=== PATIENT | male | born 1950 | race Caucasian/White ===

== ENCOUNTER 2020-02-01 09:55 | Inpatient (IN) | payer MEDICARE ==
[~2020-02-01] VITALS: Ht 182.9 cm; Wt 118.2 kg
[~2020-02-01 09:55] MED LIST: ATOR20TA PO; BACL10TA PO; CLOP75TA35 PO; HYDR-4353 PO; TRAZ150T78 PO; VALS1TAB50 PO; WEL625T PO; ZOLP10TA5 PO
[2020-02-01 10:24] LABS: EOSINOPHILS # (AUTO) 0.3 X10'3 (0-0.9); WHITE BLOOD COUNT 8.1 X10'3 (4.5-11.0)
[2020-02-01] MEDS ORDERED: aspirin 325mg tablet PO ONE (10:25)
[2020-02-01] MEDS ORDERED: nitroGLYCERIN 0.4mg SUBLingual tab SL PRN (10:25)
[2020-02-01 10:26] LABS: BASOPHILS % (AUTO) 0.6 % (0-1); EOSINOPHILS % (AUTO) 3.5 % (0-6); HEMATOCRIT 51.2 % (42.0-52.0); HEMOGLOBIN 16.7 g/dl (14.0-17.9); LYMPHOCYTES # (AUTO) 1.6 X10'3 (1.1-4.8); MEAN CORPUSCULAR HEMOGLOBIN 31.6 PG (27.0-31.0); MEAN CORPUSCULAR HGB CONC 32.7 g/dL (33.0-36.5); MEAN CORPUSCULAR VOLUME 96.5 FL (78-98); MEAN PLATELET VOLUME 6.7 FL (7.4-10.4); MONOCYTES % (AUTO) 12.4 % (2-12); NEUTROPHILS # (AUTO) 5.2 X10'3 (1.8-7.7); NEUTROPHILS % (AUTO) 63.5 % (42-75); PLATELET COUNT 183 X10'3 (140-440); RED CELL DISTRIBUTION WIDTH 14.2 % (11.5-14.5)
[2020-02-01 10:35] LABS: PARTIAL THROMBOPLASTIN TIME 27 SECONDS (22-32)
[2020-02-01 10:36] LABS: ALANINE AMINOTRANSFERASE 30 U/L (12-78); ALBUMIN 4.1 G/DL (3.4-5.0); ALBUMIN/GLOBULIN RATIO 1.2 (1.1-1.5); ALKALINE PHOSPHATASE 69 IU/L (46-116); ANION GAP 7 (8-16); ASPARTATE AMINO TRANSFERASE 22 U/L (10-37); BLOOD UREA NITROGEN 23 MG/DL (7-18); BUN/CREATININE RATIO 19.7 (5.4-32.0); CALCIUM 9.4 MG/DL (8.5-10.1); CHLORIDE 103 MMOL/L (99-107); CREATININE 1.17 MG/DL (0.60-1.10); GLUCOSE 105 MG/DL (70-104); POTASSIUM 4.2 MMOL/L (3.5-5.1); SODIUM 141 MMOL/L (135-145); TOTAL CARBON DIOXIDE 30.7 MMOL/L (24-32); TOTAL PROTEIN 7.4 G/DL (6.4-8.2); eGFR 62 ML/MIN
[2020-02-01] MEDS ORDERED: CARV25TA2 PO (12:01)
[2020-02-01] MEDS ORDERED: mag hydrox/Alum hydrox/simeth 30ml oral suspension PO PRN (12:50)
[2020-02-01] MEDS ORDERED: morphine 2 MG/ML inj. syringe IV PRN ×2 (12:50)
[2020-02-01] MEDS ORDERED: magnesium hydroxide 30ml (MOM) UD suspension PO PRN (12:50)
[2020-02-01] MEDS ORDERED: ondansetron/PF 4mg/2ml inj IV PRN (12:50)
[2020-02-01] MEDS ORDERED: acetaminophen 325mg tablet PO PRN (12:50)
[2020-02-01] MEDS: normal saline 1000ml 1,000 ML IV SCH ×2 (13:08→22:47)
--- NOTE | 2020-02-01 14:23 | NUR ---
received patient report from ER nurse, awaiting patient arrival to the unit
[2020-02-01 14:35] VITALS: BP 154/89
--- NOTE | 2020-02-01 14:43 | NUR ---
Sent a page to Dr Juan Manuel andrews PAGER ID: [phone] MESSAGE: Catalina MADRIGAL [phone] [phone] K Brianna, admit order to input, please complete admit, thanks
[2020-02-01] MEDS: colesevelam 625mg tablet PO SCH (17:00)
--- NOTE | 2020-02-01 18:19 | NUR ---
Problems reprioritized. Patient report given, questions answered & plan of care reviewed with Breana MADRIGAL.
[2020-02-01 19:00] VITALS: BP 145/92
[2020-02-01] MEDS: heparin, porcine 5000 units/ml vial SQ SCH (20:00)
[2020-02-01] MEDS: carVEDilol 12.5mg tablet PO SCH (20:16)
[2020-02-01] MEDS ORDERED: traZODone 150mg tablet PO SCH (21:00)
[2020-02-01] MEDS ORDERED: atorvastatin 20mg tablet PO SCH (21:00)
[2020-02-01 23:00] VITALS: BP 137/81
[2020-02-02] VITALS (11 sets, daily range): BP systolic 126–161; BP diastolic 77–91
[2020-02-02] MEDS: normal saline 1000ml 1,000 ML IV SCH (00:51)
[2020-02-02 05:04] LABS: BASOPHILS % (AUTO) 0.5 % (0-1); EOSINOPHILS # (AUTO) 0.3 X10'3 (0-0.9); EOSINOPHILS % (AUTO) 5.4 % (0-6); HEMATOCRIT 45.4 % (42.0-52.0); HEMOGLOBIN 15.1 g/dl (14.0-17.9); LYMPHOCYTES # (AUTO) 1.5 X10'3 (1.1-4.8); LYMPHOCYTES % (AUTO) 24.7 % (21-51); MEAN CORPUSCULAR HEMOGLOBIN 31.4 PG (27.0-31.0); MEAN CORPUSCULAR HGB CONC 33.2 g/dL (33.0-36.5); MEAN CORPUSCULAR VOLUME 94.5 FL (78-98); MEAN PLATELET VOLUME 6.9 FL (7.4-10.4); MONOCYTES # (AUTO) 0.8 X10'3 (0-0.9); MONOCYTES % (AUTO) 13.1 % (2-12); NEUTROPHILS # (AUTO) 3.4 X10'3 (1.8-7.7); NEUTROPHILS % (AUTO) 56.3 % (42-75); PLATELET COUNT 151 X10'3 (140-440); RED CELL DISTRIBUTION WIDTH 13.9 % (11.5-14.5); WHITE BLOOD COUNT 6.1 X10'3 (4.5-11.0)
[2020-02-02 05:16] LABS: ALBUMIN 3.3 G/DL (3.4-5.0); ANION GAP 7 (8-16); BLOOD UREA NITROGEN 23 MG/DL (7-18); BUN/CREATININE RATIO 21.7 (5.4-32.0); CALCIUM 8.4 MG/DL (8.5-10.1); CHLORIDE 106 MMOL/L (99-107); CREATININE 1.06 MG/DL (0.60-1.10); GLUCOSE 90 MG/DL (70-104); POTASSIUM 3.4 MMOL/L (3.5-5.1); SODIUM 142 MMOL/L (135-145); TOTAL CARBON DIOXIDE 29.4 MMOL/L (24-32); eGFR 69 ML/MIN
--- NOTE | 2020-02-02 06:17 | NUR ---
Problems reprioritized. Patient report given, questions answered & plan of care reviewed with Catherine MADRIGAL.
--- NOTE | 2020-02-02 06:19 | NUR ---
Patient in room PCU 3028. I have received report from Breana MADRIGAL and had the opportunity to ask questions and assume patient care.
[2020-02-02] MEDS: colesevelam 625mg tablet PO SCH (07:25)
[2020-02-02] MEDS: carVEDilol 12.5mg tablet PO SCH (07:25)
[2020-02-02] MEDS: heparin, porcine 5000 units/ml vial SQ SCH (07:26)
[2020-02-02] MEDS ORDERED: losartan 50mg tablet PO SCH (08:00)
[2020-02-02] MEDS ORDERED: traZODone 150mg tablet PO SCH (08:00)
[2020-02-02] MEDS ORDERED: clopidogrel 75mg tablet PO SCH (08:00)
[2020-02-02] MEDS ORDERED: HYDROchlorothiazide 25mg tablet PO SCH (08:00)
[2020-02-02] MEDS ORDERED: midazolam 2 mg/2 ml injection ONE ×2 (10:42→11:11)
[2020-02-02] MEDS ORDERED: fentaNYL/PF 50MCG/1 ML 2ML syringe ONE (10:42)
[2020-02-02] MEDS ORDERED: LIDOcaine 1% (10mg/ml)w/preservative injection 20ml MDV ONE (10:43)
[2020-02-02] MEDS ORDERED: iohexol 350 MG/ML 50ML vial IV ONE (10:43)
[2020-02-02] MEDS ORDERED: heparin 1,000unit/ml 10ml vial 10 ML ONE (10:43)
[2020-02-02] MEDS ORDERED: iohexol 350MG/ML 100ml bottle IV ONE (10:43)
[2020-02-02] MEDS ORDERED: proCHLORperazine 10 MG/2 ml inj ONE (11:09)
[2020-02-02] MEDS ORDERED: iohexol 350 MG/1 ML 200ml bottle ONE (11:27)
[2020-02-02] MEDS ORDERED: nitroGLYCERIN-Tridil 50MG/D5W 250 ML IV ONE (11:40)
[2020-02-02] MEDS ORDERED: verapamil 2.5 mg/ml inj IV ONE (11:40)
--- NOTE | 2020-02-02 12:15 | NUR ---
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 farley, will continue to monitor.
[2020-02-02] MEDS ORDERED: HYDROcodone/acetaminophen 5mg/325mg tablet PO PRN (12:35)
[2020-02-02] MEDS ORDERED: HYDROcodone/acetaminophen 10/325mg tab PO PRN (12:40)
[2020-02-02] MEDS ORDERED: proCHLORperazine 10 MG/2 ml inj IV PRN (12:40)
[2020-02-02] MEDS ORDERED: normal saline 1000ml 1,000 ML IV SCH (13:15)
--- NOTE | 2020-02-02 13:54 | NUR ---
PAGER ID: [phone] MESSAGE: [id number] Zi Nino: K is 3.4, do you want to start patient on electrolyte replacement? thanks bri [phone]
[2020-02-02] MEDS ORDERED: potassium Cl 20 mEq SR tablet PO STA (14:40)
[2020-02-02] MEDS ORDERED: ISOS30TA6 PO (15:51)
[2020-02-02] MEDS ORDERED: PANT-47 PO (15:51)
--- NOTE | 2020-02-02 16:50 | NUR ---
patient is stable for discharge per md orders, discharge instructions reviewed w/ patient and all questions answered, new med prescriptions faxed over to [facility] in [place] and verified via phone call, tele monitor removed and returned, PIV dc'ed and clean dry dressing in place, pt discharges to home at 1650, wheeled down to lobby with hospital staff, all belongings w/ pt at time of discharge.
--- NOTE | 2020-02-07 11:00 | NUR ---
Case Management DC follow up: Mailbox is full/no message
== END 2020-02-03 00:13 | disposition home or self-care (01) | DRG 287 ==
LOC: ER 09:55 → PCU 3S 14:46 → UNDOADMOB 14:46 → PCU 3S 15:25 → OBSVTOIN 15:25
PROVIDERS: ADMIT Family Medicine; ATTEND Family Medicine
PROC: 4A023N7 Measurement of Cardiac Sampling and Pressure, Left Heart, Percutaneous Approach (ICD-10-PCS; principal; 2020-02-02)
PROC: B2111ZZ Fluoroscopy of Multiple Coronary Arteries using Low Osmolar Contrast (ICD-10-PCS; 2020-02-02)
PROC: B2181ZZ Fluoroscopy of Left Internal Mammary Bypass Graft using Low Osmolar Contrast (ICD-10-PCS; 2020-02-02)
PROC: B2131ZZ Fluoroscopy of Multiple Coronary Artery Bypass Grafts using Low Osmolar Contrast (ICD-10-PCS; 2020-02-02)
DX: I24.9 Acute ischemic heart disease, unspecified (principal); I25.10 Atherosclerotic heart disease of native coronary artery without angina pectoris; I48.91 Unspecified atrial fibrillation; E78.00 Pure hypercholesterolemia, unspecified; Z88.8 Allergy status to other drugs, medicaments and biological substances; E78.5 Hyperlipidemia, unspecified; I10 Essential (primary) hypertension; Z95.1 Presence of aortocoronary bypass graft
CPT/HCPCS: 36415; 71045; 80048; 80053; 84484; 85025; 85610; 85730; 87081; 93005; 93306; 93459; 99152; 99153; 99285; A4620; A5120; A6258; C1760; C1769; C1894; G0378; J0780; J1644; J2001; J2250; J2405; J3010; J3490; J7030; Q9967

== ENCOUNTER 2020-04-28 18:49 | Emergency (ER) | payer MEDICARE ==
[~2020-04-28] VITALS: Ht 182.9 cm; Wt 113.6 kg
[~2020-04-28 18:49] MED LIST changes: -BACL10TA PO; +CARV25TA2 PO; -HYDR-4353 PO; +PANT-47 PO; -ZOLP10TA5 PO
[2020-04-28] MEDS ORDERED: TETanus/Pertussis (Acell)/Diphther VAC/PF (Tdap-Adult) 0.5ml syringe IMVAC ONE (19:35)
[2020-04-28] MEDS ORDERED: LIDOcaine 1% W/epiNEPHrine 1:200,000 10ml vial IJ ONE (19:35)
[2020-04-28 20:16] VITALS: BP 135/82
== END 2020-04-28 20:18 | disposition home or self-care (01) ==
LOC: ER 18:50
DX: S01.01XA Laceration without foreign body of scalp, initial encounter (principal); W01.118A Fall on same level from slipping, tripping and stumbling with subsequent striking against other sharp object, initial encounter; F10.129 Alcohol abuse with intoxication, unspecified; I48.91 Unspecified atrial fibrillation; I25.10 Atherosclerotic heart disease of native coronary artery without angina pectoris; E78.00 Pure hypercholesterolemia, unspecified; Z95.1 Presence of aortocoronary bypass graft; Z79.899 Other long term (current) drug therapy; Y93.89 Activity, other specified; Y92.89 Other specified places as the place of occurrence of the external cause; Y99.8 Other external cause status; Y90.0 Blood alcohol level of less than 20 mg/100 ml
CPT/HCPCS: 12002; 70450; 90471; 90715; 99284

== ENCOUNTER 2020-05-07 11:44 | Emergency (ER) | payer MEDICARE ==
[~2020-05-07] VITALS: Ht 182.9 cm; Wt 118.3 kg
[2020-05-07 11:55] VITALS: BP 126/79
== END 2020-05-07 12:42 | disposition home or self-care (01) ==
LOC: ER 11:45
DX: S01.81XD Laceration without foreign body of other part of head, subsequent encounter (principal); I48.91 Unspecified atrial fibrillation; I25.10 Atherosclerotic heart disease of native coronary artery without angina pectoris; E78.00 Pure hypercholesterolemia, unspecified; Z98.890 Other specified postprocedural states; Z88.8 Allergy status to other drugs, medicaments and biological substances; Z79.899 Other long term (current) drug therapy; X58.XXXD Exposure to other specified factors, subsequent encounter
CPT/HCPCS: 99281

== ENCOUNTER 2023-07-18 14:27 | Inpatient (IN) | payer MEDICARE ==
[~2023-07-18] VITALS: Ht 180.3 cm; Wt 123.7 kg
[~2023-07-18 14:27] MED LIST changes: +CLOP75TA34 PO; -CLOP75TA35 PO; +COLE625T29 PO; -VALS1TAB50 PO; +VALS1TAB8 PO; -WEL625T PO
[2023-07-18] MEDS ORDERED: iohexol 300mg/ml 100ml inj. ONE (14:57)
[2023-07-18 15:28] LABS: EOSINOPHILS # (AUTO) 0.2 X10'3 (0-0.9); HEMOGLOBIN 15.2 g/dl (14.0-17.9); MEAN PLATELET VOLUME 6.9 FL (7.4-10.4)
[2023-07-18 15:30] LABS: BASOPHILS # (AUTO) 0.1 X10'3 (0-0.2); BASOPHILS % (AUTO) 0.7 % (0-1); EOSINOPHILS % (AUTO) 2.6 % (0-6); HEMATOCRIT 45.8 % (42.0-52.0); LYMPHOCYTES # (AUTO) 1.4 X10'3 (1.1-4.8); LYMPHOCYTES % (AUTO) 17.3 % (21-51); MEAN CORPUSCULAR HEMOGLOBIN 31.9 PG (27.0-31.0); MEAN CORPUSCULAR HGB CONC 33.1 g/dL (33.0-36.5); MEAN CORPUSCULAR VOLUME 96.3 FL (78-98); MONOCYTES # (AUTO) 0.9 X10'3 (0-0.9); MONOCYTES % (AUTO) 10.9 % (2-12); NEUTROPHILS # (AUTO) 5.4 X10'3 (1.8-7.7); NEUTROPHILS % (AUTO) 68.5 % (42-75); PLATELET COUNT 174 X10'3 (140-440); RED BLOOD COUNT 4.75 X10'6 (4.70-6.10); RED CELL DISTRIBUTION WIDTH 14.9 % (11.5-14.5); WHITE BLOOD COUNT 7.8 X10'3 (4.5-11.0)
[2023-07-18 15:46] LABS: ALANINE AMINOTRANSFERASE 31 U/L (12-78); ALBUMIN 3.9 G/DL (3.4-5.0); ALBUMIN/GLOBULIN RATIO 1.4 (1.1-1.5); ALKALINE PHOSPHATASE 53 IU/L (46-116); ANION GAP 7 (8-16); ASPARTATE AMINO TRANSFERASE 16 U/L (10-37); BILIRUBIN,TOTAL 0.5 MG/DL (0.1-1.0); BLOOD UREA NITROGEN 24 MG/DL (7-18); BUN/CREATININE RATIO 18.3 (10.0-20.0); CALCIUM 9.4 MG/DL (8.5-10.1); CHLORIDE 105 MMOL/L (99-107); CREATININE 1.31 MG/DL (0.60-1.10); GLUCOSE 119 MG/DL (70-104); SODIUM 142 MMOL/L (135-145); TOTAL CARBON DIOXIDE 30.3 MMOL/L (24-32); TOTAL PROTEIN 6.7 G/DL (6.4-8.2); eCRCL 53 ML/MIN; eGFR 53 ML/MIN
[2023-07-18 15:53] LABS: PRO BRAIN NATRIURETIC PEPTIDE 214 PG/ML (0-125)
[2023-07-18] MEDS ORDERED: pantoprazole 40mg IV 80 MG in normal saline 100ml IV soln 100 ML IV ONE (17:00)
[2023-07-18] MEDS ORDERED: acetaminophen 650mg rectal suppository RC PRN (20:25)
[2023-07-18] MEDS ORDERED: HYDROcodone/acetaminophen 5mg/325mg tablet PO PRN (20:25)
[2023-07-18] MEDS ORDERED: mag hydrox/Alum hydrox/simeth 30ml oral suspension PO PRN (20:25)
[2023-07-18] MEDS ORDERED: acetaminophen 325mg tablet PO PRN ×2 (20:25)
[2023-07-18] MEDS ORDERED: diphenhydrAMINE 50 mg/ml inj IV PRN (20:25)
[2023-07-18] MEDS ORDERED: bisacodyl 10mg suppository rectal RC PRN (20:25)
[2023-07-18] MEDS ORDERED: ondansetron/PF 4mg/2ml inj IV PRN (20:25)
[2023-07-18] MEDS ORDERED: ondansetron 4mg rapidly disintigrating tab PO PRN (20:25)
[2023-07-18] MEDS ORDERED: diphenhydrAMINE 25mg capsule PO PRN (20:25)
[2023-07-18] MEDS ORDERED: morphine 2 MG/ML inj. syringe IV PRN (20:25)
[2023-07-18] MEDS ORDERED: magnesium hydroxide 30ml (MOM) UD suspension PO PRN (20:25)
[2023-07-18] MEDS ORDERED: HYDR25TA4 PO (20:44)
[2023-07-18] MEDS ORDERED: COLE625T13 PO (20:44)
[2023-07-18] MEDS ORDERED: SPIR25TA5 PO (20:44)
[2023-07-18] MEDS ORDERED: ROSU40TA22 PO (20:44)
[2023-07-18] MEDS ORDERED: AMI200T PO (20:44)
[2023-07-18] MEDS ORDERED: CELE100C99 PO (20:44)
[2023-07-18 20:59] LABS: HEMOGLOBIN A1C 5.9 % (4.5-6.2)
[2023-07-18 21:01] LABS: CREATINE KINASE 106 U/L (39-308); ETHANOL < 10 MG/DL (<10); LIPASE 25 U/L (16-77); MAGNESIUM 1.9 MG/DL (1.5-2.4); PHOSPHORUS 4.1 MG/DL (2.3-4.5); THYROID STIMULATING HORMONE 15.23 ulU/ml (0.34-4.50)
[2023-07-18 21:12] LABS: OSMOLALITY 305 MOSM/K (280-300)
[2023-07-18] MEDS: pantoprazole 40MG/NS 100ML BAG 100 ML IV SCH (21:32)
[2023-07-18] MEDS: normal saline 1000ml 1,000 ML IV SCH (21:32)
[2023-07-18 21:35] LABS: APTT 26 SECONDS (22-32); D-DIMER 0.33 MG/L FEU (0-0.50); INR 1.1 INR; PROTHROMBIN TIME 11.3 SECONDS (9.0-12.0)
[2023-07-18] MEDS ORDERED: NITR0.4T48 (21:42)
[2023-07-18] MEDS ORDERED: TRAZ150T78 PO (21:42)
[2023-07-18] MEDS ORDERED: traZODone 150mg tablet PO ONE (22:00)
[2023-07-18] MEDS: amiodarone 200mg tablet PO SCH (22:46)
[2023-07-18] MEDS: carVEDilol 12.5mg tablet PO SCH (22:46)
[2023-07-18] MEDS: temazepam 15mg capsule PO PRN (22:47)
[2023-07-18 23:10] VITALS: BP 150/87; PULSE 66; RESP 16; TEMP 97.4; O2SAT 95
[2023-07-18 23:23] LABS: BILIRUBIN,URINE NEGATIVE (Neg); CLARITY,URINE CLEAR (Clear); COLOR,URINE YELLOW (Yellow); GLUCOSE, URINE NEGATIVE (Neg); KETONES,URINE NEGATIVE (Neg); LEUKOCYTE ESTERASE ,URINE NEGATIVE (Neg); NITRITES, URINE NEGATIVE (Neg); OCCULT BLOOD,URINE NEGATIVE (Neg); PROTEIN,URINE NEGATIVE (Neg); UROBILINOGEN,URINE 0.2 E.U/dL (0.2-1.0)
[2023-07-18 23:28] LABS: UA COLLECTION TYPE CLN CATCH MIDSTREAM; URINE AMPHETAMINE SCREEN NEGATIVE (Neg); URINE BARBITUATE SCREEN NEGATIVE (Neg); URINE BENZODIAZEPINES SCREEN NEGATIVE (Neg); URINE CANNABINOID SCREEN NEGATIVE (Neg); URINE COCAINE SCREEN NEGATIVE (Neg); URINE METHADONE SCREEN NEGATIVE (Neg); URINE OPIATE SCREEN NEGATIVE (Neg); URINE PHENCYCLIDINE SCREEN NEGATIVE (Neg)
[2023-07-19] VITALS (12 sets, daily range): BP systolic 110–160; BP diastolic 51–89; PULSE 58–69; RESP 14–19; TEMP 97–97.5; O2SAT 92–98
[2023-07-19] MEDS: pantoprazole 40MG/NS 100ML BAG 100 ML IV SCH ×4 (02:21→21:00)
[2023-07-19] MEDS: normal saline 1000ml 1,000 ML IV SCH ×2 (02:24→08:58)
[2023-07-19 05:52] LABS: HEMOGLOBIN 14.3 g/dl (14.0-17.9)
[2023-07-19 05:55] LABS: BASOPHILS % (AUTO) 0.4 % (0-1); EOSINOPHILS # (AUTO) 0.3 X10'3 (0-0.9); EOSINOPHILS % (AUTO) 4.1 % (0-6); HEMATOCRIT 43.5 % (42.0-52.0); LYMPHOCYTES # (AUTO) 1.9 X10'3 (1.1-4.8); LYMPHOCYTES % (AUTO) 25.9 % (21-51); MEAN CORPUSCULAR HEMOGLOBIN 31.6 PG (27.0-31.0); MEAN CORPUSCULAR HGB CONC 32.8 g/dL (33.0-36.5); MEAN CORPUSCULAR VOLUME 96.5 FL (78-98); MEAN PLATELET VOLUME 7.3 FL (7.4-10.4); MONOCYTES # (AUTO) 0.8 X10'3 (0-0.9); MONOCYTES % (AUTO) 10.6 % (2-12); NEUTROPHILS # (AUTO) 4.4 X10'3 (1.8-7.7); PLATELET COUNT 153 X10'3 (140-440); RED BLOOD COUNT 4.51 X10'6 (4.70-6.10); WHITE BLOOD COUNT 7.4 X10'3 (4.5-11.0)
[2023-07-19 06:30] LABS: ALANINE AMINOTRANSFERASE 25 U/L (12-78); ALBUMIN 3.5 G/DL (3.4-5.0); ALBUMIN/GLOBULIN RATIO 1.4 (1.1-1.5); ALKALINE PHOSPHATASE 46 IU/L (46-116); ANION GAP 8 (8-16); ASPARTATE AMINO TRANSFERASE 20 U/L (10-37); BILIRUBIN,TOTAL 0.7 MG/DL (0.1-1.0); BLOOD UREA NITROGEN 21 MG/DL (7-18); BUN/CREATININE RATIO 20.6 (10.0-20.0); CALCIUM 8.9 MG/DL (8.5-10.1); CHLORIDE 105 MMOL/L (99-107); CHOL/HDL RATIO 2.2 (0.00-4.99); CHOLESTEROL 92 MG/DL (0-200); CREATININE 1.02 MG/DL (0.60-1.10); GLUCOSE 78 MG/DL (70-104); HDL CHOLESTEROL 42 MG/DL (35-60); LDL CHOLESTEROL 36 MG/DL (50-100); POTASSIUM 3.4 MMOL/L (3.5-5.1); SODIUM 141 MMOL/L (135-145); TOTAL CARBON DIOXIDE 27.9 MMOL/L (24-32); TRIGLYCERIDES 101 MG/DL (20-135); eCRCL 68 ML/MIN; eGFR 71 ML/MIN
[2023-07-19] MEDS: docusate sod 100mg capsule PO SCH ×2 (08:55→20:00)
[2023-07-19] MEDS: amiodarone 200mg tablet PO SCH (08:56)
[2023-07-19] MEDS: carVEDilol 12.5mg tablet PO SCH ×2 (08:56→20:09)
[2023-07-19 09:16] LABS: OCCULT BLOOD STOOL POSITIVE (Neg)
[2023-07-19] MEDS ORDERED: MIDAZolam 1 MG/ML 5ML VIAL ONE (13:18)
[2023-07-19] MEDS ORDERED: fentaNYL/PF 50MCG/1 ML 2ML syringe ONE (13:18)
[2023-07-19] MEDS ORDERED: LIDOcaine Viscous 15ml cup ONE (13:18)
[2023-07-19] MEDS ORDERED: magnesium Cl slow-release 64mg tablet PO PRN (16:45)
[2023-07-19] MEDS ORDERED: magnesium 4gm in 100ml NS 100 ML IV PRN (16:45)
[2023-07-19] MEDS ORDERED: magnesium 2GM in 50ml NS 50 ML IV PRN (16:45)
[2023-07-19] MEDS ORDERED: potassium Cl 40MEQ/1/2NS 520ml 520 ML IV PRN (16:45)
[2023-07-19] MEDS ORDERED: potassium Cl 20 mEq SR tablet PO PRN ×2 (16:45)
--- NOTE | 2023-07-19 17:00 | NUR ---
Spoke with Dr. Hall regarding patient wanting to go home post EGD. Notified that patient had removed his telemetry unit and was refusing to be hooked back up to his IV solutions. Dr. Trevizo stated that if patient wants to go home now he will have to go AMA. Discussed conversation with patient and patient continues to want to go home but is willing to stay to get further tests if needed. States "I will stay tonight but I will not be hooked up to this heart monitor or the IV. Reported off to December RN and to [facility] charge nurse.
[2023-07-19] MEDS: K and/or MAG REPLACEMENT MC SCH (20:00)
[2023-07-19] MEDS: traZODone 150mg tablet PO SCH (20:09)
[2023-07-19] MEDS: temazepam 15mg capsule PO PRN (20:15)
--- NOTE | 2023-07-20 00:45 | NUR ---
PT REFUSED TO BE HOOKED BACK TO HIS IV AND PROTONIX DRIP AT THIS TIME,EXPLAINED TO PT WHY HE IS ON IT STILL REFUSING.
[2023-07-20] MEDS: pantoprazole 40MG/NS 100ML BAG 100 ML IV SCH ×6 (01:00→21:03)
[2023-07-20 06:00] VITALS: BP 128/71; PULSE 55; RESP 18; TEMP 97.9; O2SAT 97
[2023-07-20 07:06] LABS: BASOPHILS # (AUTO) 0.1 X10'3 (0-0.2); BASOPHILS % (AUTO) 1.5 % (0-1); EOSINOPHILS # (AUTO) 0.3 X10'3 (0-0.9); HEMATOCRIT 39.8 % (42.0-52.0); HEMOGLOBIN 13.4 g/dl (14.0-17.9); LYMPHOCYTES # (AUTO) 1.3 X10'3 (1.1-4.8); LYMPHOCYTES % (AUTO) 17.9 % (21-51); MEAN CORPUSCULAR HEMOGLOBIN 32.2 PG (27.0-31.0); MEAN CORPUSCULAR HGB CONC 33.7 g/dL (33.0-36.5); MEAN CORPUSCULAR VOLUME 95.5 FL (78-98); MEAN PLATELET VOLUME 7.1 FL (7.4-10.4); MONOCYTES # (AUTO) 0.6 X10'3 (0-0.9); NEUTROPHILS # (AUTO) 4.8 X10'3 (1.8-7.7); NEUTROPHILS % (AUTO) 67.6 % (42-75); PLATELET COUNT 135 X10'3 (140-440); RED BLOOD COUNT 4.17 X10'6 (4.70-6.10); RED CELL DISTRIBUTION WIDTH 14.6 % (11.5-14.5); WHITE BLOOD COUNT 7.1 X10'3 (4.5-11.0)
[2023-07-20 07:27] LABS: % IRON SATURATION 18 % (11-46); IRON 45 UG/DL (53-167); TOTAL IRON BINDING CAPACITY 255 UG/DL (259-388)
[2023-07-20 07:55] VITALS: RESP 16
[2023-07-20] MEDS: K and/or MAG REPLACEMENT MC SCH ×2 (08:00→20:00)
[2023-07-20] MEDS: docusate sod 100mg capsule PO SCH ×2 (08:00→20:00)
[2023-07-20 08:06] LABS: ALANINE AMINOTRANSFERASE 25 U/L (12-78); ALBUMIN 3.5 G/DL (3.4-5.0); ALBUMIN/GLOBULIN RATIO 1.5 (1.1-1.5); ALKALINE PHOSPHATASE 46 IU/L (46-116); ANION GAP 8 (8-16); ASPARTATE AMINO TRANSFERASE 19 U/L (10-37); BILIRUBIN,TOTAL 0.6 MG/DL (0.1-1.0); BLOOD UREA NITROGEN 19 MG/DL (7-18); BUN/CREATININE RATIO 18.8 (10.0-20.0); CALCIUM 8.6 MG/DL (8.5-10.1); CHLORIDE 105 MMOL/L (99-107); CREATININE 1.01 MG/DL (0.60-1.10); FERRITIN 393 NG/ML (26-388); GLUCOSE 100 MG/DL (70-104); POTASSIUM 3.7 MMOL/L (3.5-5.1); SODIUM 141 MMOL/L (135-145); TOTAL CARBON DIOXIDE 27.8 MMOL/L (24-32); TOTAL PROTEIN 5.9 G/DL (6.4-8.2); eCRCL 68 ML/MIN; eGFR 72 ML/MIN
--- NOTE | 2023-07-20 08:55 | NUR ---
PAGER ID: [phone] MESSAGE: Mis Tobar [phone] Re: Trung [phone] please call re: patient would like to have colonoscopy still having blood in stoo
[2023-07-20] MEDS: carVEDilol 12.5mg tablet PO SCH ×2 (09:17→21:03)
[2023-07-20] MEDS: amiodarone 200mg tablet PO SCH (09:17)
[2023-07-20 10:16] VITALS: BP 130/79; PULSE 69; RESP 16; TEMP 97.6; O2SAT 96
[2023-07-20] MEDS ORDERED: PEG 3350/Na sulf,bicarb,Cl/KCl oral sol 4 liter bottle PO ONE (10:20)
[2023-07-20 11:33] VITALS: RESP 18; O2SAT 99
--- NOTE | 2023-07-20 12:30 | NUR ---
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
[2023-07-20 18:00] VITALS: BP 145/76; PULSE 61; RESP 17; TEMP 98.4; O2SAT 98
--- NOTE | 2023-07-20 19:13 | NUR ---
Problems reprioritized. Patient report given, questions answered & plan of care reviewed with Juany MADRIGAL.
[2023-07-20] MEDS: temazepam 15mg capsule PO PRN (21:03)
[2023-07-20] MEDS: traZODone 150mg tablet PO SCH (21:03)
[2023-07-20 22:00] VITALS: BP 130/69; PULSE 74; RESP 15; TEMP 97.3; O2SAT 95
[2023-07-21] VITALS (15 sets, daily range): BP systolic 128–165; BP diastolic 61–97; PULSE 67–80; RESP 14–67; TEMP 97.4–98.1; O2SAT 92–96
[2023-07-21] MEDS: pantoprazole 40MG/NS 100ML BAG 100 ML IV SCH ×2 (05:25→11:00)
[2023-07-21 06:22] LABS: BASOPHILS % (AUTO) 0.5 % (0-1); EOSINOPHILS # (AUTO) 0.2 X10'3 (0-0.9); EOSINOPHILS % (AUTO) 3.8 % (0-6); HEMATOCRIT 38.5 % (42.0-52.0); LYMPHOCYTES # (AUTO) 1.2 X10'3 (1.1-4.8); LYMPHOCYTES % (AUTO) 17.8 % (21-51); MEAN CORPUSCULAR HEMOGLOBIN 32.3 PG (27.0-31.0); MEAN CORPUSCULAR HGB CONC 33.8 g/dL (33.0-36.5); MEAN CORPUSCULAR VOLUME 95.5 FL (78-98); MONOCYTES # (AUTO) 0.8 X10'3 (0-0.9); MONOCYTES % (AUTO) 12.9 % (2-12); NEUTROPHILS # (AUTO) 4.2 X10'3 (1.8-7.7); PLATELET COUNT 140 X10'3 (140-440); RED BLOOD COUNT 4.03 X10'6 (4.70-6.10); RED CELL DISTRIBUTION WIDTH 14.4 % (11.5-14.5); WHITE BLOOD COUNT 6.5 X10'3 (4.5-11.0)
[2023-07-21 06:23] LABS: ALANINE AMINOTRANSFERASE 21 U/L (12-78); ALBUMIN 3.6 G/DL (3.4-5.0); ALBUMIN/GLOBULIN RATIO 1.7 (1.1-1.5); ALKALINE PHOSPHATASE 44 IU/L (46-116); ANION GAP 8 (8-16); ASPARTATE AMINO TRANSFERASE 23 U/L (10-37); BILIRUBIN,TOTAL 0.6 MG/DL (0.1-1.0); BLOOD UREA NITROGEN 14 MG/DL (7-18); BUN/CREATININE RATIO 14.9 (10.0-20.0); CALCIUM 8.6 MG/DL (8.5-10.1); CHLORIDE 105 MMOL/L (99-107); CREATININE 0.94 MG/DL (0.60-1.10); GLUCOSE 92 MG/DL (70-104); POTASSIUM 3.4 MMOL/L (3.5-5.1); SODIUM 142 MMOL/L (135-145); TOTAL CARBON DIOXIDE 29.3 MMOL/L (24-32); TOTAL PROTEIN 5.7 G/DL (6.4-8.2); eCRCL 73 ML/MIN; eGFR 78 ML/MIN
[2023-07-21] MEDS: docusate sod 100mg capsule PO SCH (08:00)
[2023-07-21] MEDS: K and/or MAG REPLACEMENT MC SCH (08:00)
--- NOTE | 2023-07-21 09:31 | NUR ---
patient leaving to GI lab via wheelchair saline locked
[2023-07-21] MEDS ORDERED: fentaNYL/PF 50MCG/1 ML 2ML syringe ONE (11:00)
[2023-07-21] MEDS ORDERED: diphenhydrAMINE 50 mg/ml inj ONE (11:00)
[2023-07-21] MEDS ORDERED: MIDAZolam 1 MG/ML 5ML VIAL ONE (11:00)
--- NOTE | 2023-07-21 12:31 | NUR ---
PAGER ID: [phone] MESSAGE: Mis Tobar [phone] Re; Trung [id number] patient back from Colonoscopy please call re: diet and BP med question Addendum: 07/21/23 at 1234 by Mis Ricardo RN Per Dr Cronin ok to given patient am BP medications including BID Coreg. Received orders for clear liquid diet. Dr Cronin will be up to see patient possibly going to discharge
[2023-07-21] MEDS: amiodarone 200mg tablet PO SCH (12:56)
[2023-07-21] MEDS: carVEDilol 12.5mg tablet PO SCH (12:58)
[2023-07-21] MEDS ORDERED: DEXL60CA6 PO (13:40)
--- NOTE | 2023-07-21 15:53 | NUR ---
PAGER ID: [phone] MESSAGE: Mis Tobar [phone] Re: Trung please call re: work release
--- NOTE | 2023-07-21 16:20 | NUR ---
Patient discharge instructions reviewed with patient and patient verbalized understanding. Patients IV taken out cannula intact. Patient states he has all his belongings and was taken to son's vehicle by ambulating out of hospital with student officer Rima.
== END 2023-07-21 15:25 | disposition home or self-care (01) | DRG 377 ==
LOC: ER 14:27 → ED HOLD 20:34 → EDBEDREQ 22:47 → ORTHO 4S 23:03
PROVIDERS: ADMIT Family Medicine; ATTEND Internal Medicine
PROC: BW211ZZ Computerized Tomography (CT Scan) of Abdomen and Pelvis using Low Osmolar Contrast (ICD-10-PCS; 2023-07-18)
PROC: 0DB78ZX Excision of Stomach, Pylorus, Via Natural or Artificial Opening Endoscopic, Diagnostic (ICD-10-PCS; principal; 2023-07-19)
PROC: 0DJD8ZZ Inspection of Lower Intestinal Tract, Via Natural or Artificial Opening Endoscopic (ICD-10-PCS; 2023-07-21)
DX: K57.51 Diverticulosis of both small and large intestine without perforation or abscess with bleeding (principal); K21.01 Gastro-esophageal reflux disease with esophagitis, with bleeding; N17.0 Acute kidney failure with tubular necrosis; I13.0 Hypertensive heart and chronic kidney disease with heart failure and stage 1 through stage 4 chronic kidney disease, or unspecified chronic kidney disease; I50.32 Chronic diastolic (congestive) heart failure; K29.71 Gastritis, unspecified, with bleeding; K76.0 Fatty (change of) liver, not elsewhere classified; T45.525A Adverse effect of antithrombotic drugs, initial encounter; T39.395A Adverse effect of other nonsteroidal anti-inflammatory drugs [NSAID], initial encounter; Y92.89 Other specified places as the place of occurrence of the external cause; E66.9 Obesity, unspecified; G47.33 Obstructive sleep apnea (adult) (pediatric); I25.10 Atherosclerotic heart disease of native coronary artery without angina pectoris; I48.91 Unspecified atrial fibrillation; E78.00 Pure hypercholesterolemia, unspecified; M19.90 Unspecified osteoarthritis, unspecified site; N18.9 Chronic kidney disease, unspecified; K44.9 Diaphragmatic hernia without obstruction or gangrene; N40.0 Benign prostatic hyperplasia without lower urinary tract symptoms; Z95.1 Presence of aortocoronary bypass graft; Z79.899 Other long term (current) drug therapy; Z79.02 Long term (current) use of antithrombotics/antiplatelets; Z87.891 Personal history of nicotine dependence; Z68.38 Body mass index [BMI] 38.0-38.9, adult; Z88.8 Allergy status to other drugs, medicaments and biological substances
CPT/HCPCS: 36415; 43239; 45378; 71045; 74178; 80053; 80061; 80305; 80320; 81003; 82272; 82550; 82607; 82728; 83036; 83540; 83550; 83690; 83735; 83880; 83930; 84100; 84443; 84484; 85025; 85379; 85610; 85730; 87081; 96365; 99152; 99291; A4615; A4620; C9113; G0378; J1200; J2250; J3010; J3490; J7030; Q9967

== ENCOUNTER → 2023-11-22 | Outpatient (CLI) | payer MEDICARE ==
[~2023-11-22] MED LIST changes: +AMI200T PO; -ATOR20TA PO; +COLE625T13 PO; -COLE625T29 PO; +DEXL60CA6 PO; +HYDR25TA4 PO; +IODIXANOL 320 MG/ML INFUS..BTL 100ML IV ONE; +NITR0.4T48; -PANT-47 PO; +ROSU40TA22 PO; +SPIR25TA5 PO; -VALS1TAB8 PO
[2023-11-22 10:21] LABS: APTT 28 SECONDS (22-32); INR 1.1 INR; PROTHROMBIN TIME 11.9 SECONDS (9.0-12.0)
[2023-11-22 10:26] LABS: BASOPHILS % (AUTO) 0.6 % (0-1); EOSINOPHILS # (AUTO) 0.2 X10'3 (0-0.9); EOSINOPHILS % (AUTO) 3.1 % (0-6); HEMATOCRIT 46.3 % (42.0-52.0); HEMOGLOBIN 15.4 g/dl (14.0-17.9); LYMPHOCYTES % (AUTO) 15.4 % (21-51); MEAN CORPUSCULAR HEMOGLOBIN 31.1 PG (27.0-31.0); MEAN CORPUSCULAR HGB CONC 33.3 g/dL (33.0-36.5); MEAN CORPUSCULAR VOLUME 93.3 FL (78-98); MEAN PLATELET VOLUME 6.9 FL (7.4-10.4); MONOCYTES # (AUTO) 0.5 X10'3 (0-0.9); MONOCYTES % (AUTO) 8.1 % (2-12); NEUTROPHILS # (AUTO) 4.6 X10'3 (1.8-7.7); NEUTROPHILS % (AUTO) 72.8 % (42-75); PLATELET COUNT 188 X10'3 (140-440); RED BLOOD COUNT 4.96 X10'6 (4.70-6.10); WHITE BLOOD COUNT 6.3 X10'3 (4.5-11.0)
[2023-11-22 10:36] LABS: ALANINE AMINOTRANSFERASE 22 U/L (12-78); ALBUMIN 3.7 G/DL (3.4-5.0); ALBUMIN/GLOBULIN RATIO 1.1 (1.1-1.5); ALKALINE PHOSPHATASE 51 IU/L (46-116); ANION GAP 10 (8-16); ASPARTATE AMINO TRANSFERASE 22 U/L (10-37); BILIRUBIN,TOTAL 0.4 MG/DL (0.1-1.0); BLOOD UREA NITROGEN 19 MG/DL (7-18); BUN/CREATININE RATIO 15.2 (10.0-20.0); CALCIUM 8.2 MG/DL (8.5-10.1); CHLORIDE 107 MMOL/L (99-107); CREATININE 1.25 MG/DL (0.60-1.10); GLUCOSE 142 MG/DL (70-104); POTASSIUM 3.7 MMOL/L (3.5-5.1); PRO BRAIN NATRIURETIC PEPTIDE 187 PG/ML (0-125); SODIUM 146 MMOL/L (135-145); TOTAL CARBON DIOXIDE 29.2 MMOL/L (24-32); TOTAL PROTEIN 7.1 G/DL (6.4-8.2); eGFR 56 ML/MIN
== END | disposition home or self-care (01) ==
LOC: RAD 09:34
PROVIDERS: ATTEND Internal Medicine Cardiovascular Disease
DX: I08.0 Rheumatic disorders of both mitral and aortic valves (principal); R06.02 Shortness of breath; I65.29 Occlusion and stenosis of unspecified carotid artery; I25.10 Atherosclerotic heart disease of native coronary artery without angina pectoris; K44.9 Diaphragmatic hernia without obstruction or gangrene; N28.1 Cyst of kidney, acquired; K57.30 Diverticulosis of large intestine without perforation or abscess without bleeding; M47.816 Spondylosis without myelopathy or radiculopathy, lumbar region; M43.16 Spondylolisthesis, lumbar region; Z95.1 Presence of aortocoronary bypass graft
CPT/HCPCS: 36415; 71046; 71275; 74174; 75572; 80053; 83880; 85025; 85610; 85730; 93308; 93880; J3490; Q9967

== ENCOUNTER 2023-12-17 07:25 | Day surgery (SDC) | payer MEDICARE ==
[2023-12-17] VITALS (10 sets, daily range): BP systolic 107–137; BP diastolic 68–81; PULSE 54–80; RESP 16–18; TEMP 97.9; O2SAT 92–96
[~2023-12-17] VITALS: Ht 180.3 cm; Wt 119.3 kg
[~2023-12-17 07:25] MED LIST changes: -IODIXANOL 320 MG/ML INFUS..BTL 100ML IV ONE
[2023-12-17] MEDS ORDERED: CELE-148 PO (08:19)
[2023-12-17] MEDS ORDERED: COLE625T13 PO (08:21)
[2023-12-17 08:47] LABS: BASOPHILS % (AUTO) 0.6 % (0-1); EOSINOPHILS # (AUTO) 0.2 X10'3 (0-0.9); EOSINOPHILS % (AUTO) 3.1 % (0-6); HEMATOCRIT 44.7 % (42.0-52.0); HEMOGLOBIN 14.7 g/dl (14.0-17.9); LYMPHOCYTES # (AUTO) 1.3 X10'3 (1.1-4.8); LYMPHOCYTES % (AUTO) 16.1 % (21-51); MEAN CORPUSCULAR HEMOGLOBIN 30.8 PG (27.0-31.0); MEAN CORPUSCULAR HGB CONC 32.9 g/dL (33.0-36.5); MEAN CORPUSCULAR VOLUME 93.7 FL (78-98); MEAN PLATELET VOLUME 6.7 FL (7.4-10.4); MONOCYTES # (AUTO) 0.7 X10'3 (0-0.9); MONOCYTES % (AUTO) 8.3 % (2-12); NEUTROPHILS # (AUTO) 5.7 X10'3 (1.8-7.7); NEUTROPHILS % (AUTO) 71.9 % (42-75); PLATELET COUNT 152 X10'3 (140-440); RED BLOOD COUNT 4.78 X10'6 (4.70-6.10); RED CELL DISTRIBUTION WIDTH 15.7 % (11.5-14.5); WHITE BLOOD COUNT 7.9 X10'3 (4.5-11.0)
[2023-12-17 08:59] LABS: ALBUMIN 3.4 G/DL (3.4-5.0); ANION GAP 6 (8-16); BLOOD UREA NITROGEN 21 MG/DL (7-18); BUN/CREATININE RATIO 19.3 (10.0-20.0); CALCIUM 8.5 MG/DL (8.5-10.1); CHLORIDE 105 MMOL/L (99-107); CREATININE 1.09 MG/DL (0.60-1.10); GLUCOSE 108 MG/DL (70-104); INR 1.1 INR; MAGNESIUM 1.9 MG/DL (1.5-2.4); POTASSIUM 3.8 MMOL/L (3.5-5.1); PROTHROMBIN TIME 11.8 SECONDS (9.0-12.0); SODIUM 140 MMOL/L (135-145); TOTAL CARBON DIOXIDE 28.9 MMOL/L (24-32); eCRCL 63 ML/MIN; eGFR 66 ML/MIN
[2023-12-17] MEDS: diphenhydrAMINE 25mg capsule PO PRN (09:20)
[2023-12-17] MEDS: normal saline 1,000 ML IV SCH (09:21)
[2023-12-17] MEDS: sodium bicarbonate 1meq/ml syr 150 ML in dextrose 5%-water 1,000 ML IV SCH (09:21)
[2023-12-17] MEDS ORDERED: LIDOcaine 1% 30ml preserv. free vial ONE (11:32)
[2023-12-17] MEDS ORDERED: midazolam 1 mg/ML 2ml injection ONE ×4 (11:32→12:49)
[2023-12-17] MEDS ORDERED: iohexol 350 MG/ML 50ML vial IV ONE (11:33)
[2023-12-17] MEDS ORDERED: fentaNYL/PF 50MCG/1 ML 2ML syringe ONE (11:33)
[2023-12-17] MEDS ORDERED: iohexol 350MG/ML 100ml bottle IV ONE ×2 (11:33→12:43)
[2023-12-17] MEDS ORDERED: heparin 1,000unit/ml 10ml vial 10 ML ONE (11:33)
[2023-12-17] MEDS ORDERED: normal saline 1000ml 1,000 ML IV SCH (13:35)
[2023-12-17] MEDS ORDERED: ondansetron/PF 4mg/2ml inj IV PRN (13:35)
[2023-12-17] MEDS ORDERED: proCHLORperazine 10 MG/2 ml inj IV PRN (13:35)
[2023-12-17] MEDS ORDERED: HYDROcodone/acetaminophen 5mg/325mg tablet PO PRN (13:35)
[2023-12-17] MEDS: HYDROcodone/acetaminophen 10/325mg tab PO PRN (14:18)
== END 2023-12-17 16:30 | disposition home or self-care (01) ==
LOC: SSTAY O 07:25
PROVIDERS: ATTEND Internal Medicine Cardiovascular Disease
DX: I35.0 Nonrheumatic aortic (valve) stenosis (principal); I25.10 Atherosclerotic heart disease of native coronary artery without angina pectoris; I45.10 Unspecified right bundle-branch block; I25.2 Old myocardial infarction; E78.5 Hyperlipidemia, unspecified; Z79.899 Other long term (current) drug therapy; Z95.1 Presence of aortocoronary bypass graft; Z98.890 Other specified postprocedural states
CPT/HCPCS: 36415; 80048; 83735; 85025; 85610; 93005; 93461; 99152; 99153; J1644; J2250; J3010; J3490; J7030; J7070; Q0163; Q9967; A6258; C1725; C1751; C1760; C1769; C1894

== ENCOUNTER 2025-02-12 15:38 | Outpatient (CLI) | payer MEDICARE ==
[~2025-02-12 15:38] MED LIST changes: -DEXL60CA6 PO; -NITR0.4T48; +NITR0.4T48 PO; -ROSU40TA22 PO; +ROSU40TA89 PO
--- NOTE | 2025-02-12 17:01 | ELECTROCARDIOGRAPH REPORT ---
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 Louis Sehpherd Measurements Intervals [place] Rate: 68 P: 73 LA: 143 QRS: -21 QRSD: 173 T: 62 QT: 511 QTc: 544 Interpretive Statements Sinus rhythm Right bundle branch block Prolonged QTc interval Electronically Signed On 02-13-2025 8:16:[address] Louis Shepherd Please click the below link to view image of tracing.
--- NOTE | 2025-02-13 09:18 | CARDIOLOGY REPORT ---
APPROVED REPORT EXAM: Comprehensive 2D, Doppler, and color-flow Echocardiogram. Patient Location: OUT-PATIENT Blood Pressure: 117 / 68 mmHg Heart Rate: 66 bpm Rhythm: SINUS Indications 1 YEAR TAVR FOLLOW-UP 26mm Shipley Scotty 3 Ultra RESILIA Bioprosthetic TAVR 01/07/24 CABG X 5 2003 STENTS X MULTIPLE ABLATION HYPERTENSION Voltmeter Operator: Gely VALLECILLO DO Previous echo: 01/07/24 [facility] HD EF: 68%; nlLV; mRVE; RVSP 43mmHG; modLAE; nlAVR - ANGEL: 3.30; PKV: 2.3 1; GRAD: ; mMR; mTR 2D Dimensions LVOT Diameter 2.57 (1.8-2.4cm) M-Mode Dimensions Left Atrium(MM) 5.44 (2.5-4.0cm) IVSd 1.20 (0.7-1.1cm) LVDd 4.45 (4.0-5.6cm) Aortic Root 3.18 (2.2-3.7cm) PWd 1.51 (0.7-1.1cm) IVSs 1.81 cm LVDs 2.70 (2.0-3.8cm) FS (%) 39 % PWs 1.71 cm ESV(Teich) 27.1 ml LVEF(%) 70 (>50%) Aortic Valve AoV Peak Devonte. 342.3 cm/s AoV VTI 73.3 cm AO Peak GR. 47.9 mmHg AO Mean GR. 28 mmHg LVOT VTI 30.21 cm LVOT Peak Devonte. 143.1 cm/s ANGEL (VMAX) 2.16 cm2 ANGEL (VTI) 2.13 cm2 Mitral Valve MV E Velocity 110.8 cm/s MV DECEL TIME 186 ms MV A Velocity 129.1 cm/s MV PHT 63 ms E/A Ratio 0.9 MVA (PHT) 3.47 cm2 Tricuspid Valve TR P. Velocity 287 cm/s RAP ESTIMATE 10 mmHg TR Peak Gr. 33 mmHg RVSP 43 mmHg LEFT VENTRICLE Normal LV size and wall thickness. Overall systolic function is normal. LVEF is 65-70%. RIGHT VENTRICLE RV is normal size and function. Elevated right heart pressures as noted above. ATRIA Left atrium is severely dilated. AORTIC VALVE 26 mm Shipley Scotty 3 Ultra Resilia bioprosthetic TAVR appears well seated with normal function. Tri vial paravalvular leaks present at 6, 7 o'clock in TTE SAX BASE. ANGEL is measured at 2.23 cmsq. Peak / mean gradients of 48 / 28 mmHG. Peak velocity is measured at 3.42 m/sec. MITRAL VALVE Mild MV annular and leaflet calcification without stenosis. Mild regurgitation. TRICUSPID VALVE TV appears structurally normal with trace regurgitation. PULMONIC VALVE Normal PV without stenosis, physiologic insufficiency. GREAT VESSELS Aortic root is normal in size. Ascending aorta is normal in size. PERICARDIUM Normal pericardium. No effusion. Other Information Study Quality: Adequate
== END 2025-02-12 23:59 | disposition home or self-care (01) ==
LOC: CARD DIAG 15:38
PROVIDERS: ATTEND Internal Medicine Cardiovascular Disease
DX: Z48.812 Encounter for surgical aftercare following surgery on the circulatory system (principal); I08.8 Other rheumatic multiple valve diseases; Z95.2 Presence of prosthetic heart valve; I45.10 Unspecified right bundle-branch block; Z98.890 Other specified postprocedural states
CPT/HCPCS: 93005; 93306